=== PATIENT | female | born 1960 | race Caucasian/White ===

== ENCOUNTER 2018-09-19 11:40 | Day surgery (SDC) | payer BC, OTHER ==
--- NOTE | 2018-09-19 06:30 | HP ---
AMENDED REPORT NOW INCLUDES DESIGNATED COSIGNER PREOPERATIVE HISTORY AND PHYSICAL: DATE OF SURGERY/ADMISSION: 09/19/18 ATTENDING SURGEON: Tomeka Jerez MD * (DICTATED BY TONY MCCARTHY) PROCEDURE: Right wrist open reduction internal fixation. DATE OF OFFICE VISIT/ENCOUNTER: 09/18/18. CHIEF COMPLAINT: Right wrist pain after a fall. HISTORY OF PRESENT ILLNESS: This is a 58-year-old female who sustained injury to her right wrist on 09/16/18 while running a trail race. She reports she was about 32 miles into a 50 mile race when she tripped and fell on her outstretched right hand. This was in [place], [place]. She was seen at a hospital there and had an x-ray, which showed a markedly displaced fracture of the distal radius and also a displaced ulnar styloid fracture. She had this reduced by an orthopedist who is able to achieve a fairly good position and placed her in a sugar tong splint. She denies any associated numbness or tingling. She has been using over- the-counter naproxen and Tylenol for pain control, but does have some oxycodone 5 mg that was prescribed. This is her dominant hand. After review of x-rays by Dr. Jerez and clinical exam, she had consented to proceed with surgical intervention at this time in the form of an right wrist open reduction internal fixation. PAST MEDICAL HISTORY: 1. Hypothyroidism. 2. Libertad's thyroiditis. 3. Migraine headaches. 4. Raynaud's disease. 5. History of anemia. PAST SURGICAL HISTORY: A LEEP procedure in 2000. CURRENT MEDICATIONS: 1. Calcium 600 plus vitamin D 1 tab daily. 2. Excedrin Migraine p.r.n. 3. Fish oil 1000 mg 2 tabs daily. 4. Iron complex 27 mg daily. 5. Levoxyl 137 mcg 1 tab 2 days, 125 mcg every third day. 6. Multivitamins 1 daily. 7. Vitamin D3 1000 units daily. ALLERGIES: NOVOCAINE causes nausea. Sulfa antibiotics causes hives. FAMILY MEDICAL HISTORY: Noncontributory. SOCIAL HISTORY: The patient works from home in [employer]. She denies tobacco use and recreational drug use. She drinks alcohol on a very rare occasion. REVIEW OF SYSTEMS: Negative for general, cephalic, cardiovascular, respiratory , GI, , other musculoskeletal, integumentary, endocrine, neurologic, and hematologic symptoms. Infectious Disease is negative for MRSA, hepatitis C or HIV. PHYSICAL EXAMINATION GENERAL: Well-developed, well-nourished 58-year-old female, in no acute distress. VITAL SIGNS: Height 5 feet tall, weight 102 pounds, pulse rate 58, blood pressure 128/80. HEENT: Normocephalic, atraumatic. Pupils are equal, round, and reactive to light and accommodation. Extraocular movements are intact. Throat is clear. NECK: Supple. No palpable lymph nodes. CARDIOVASCULAR: Regular rate and rhythm. S1, S2. No murmurs, rubs or gallops. No edema. PULMONARY: Lungs are clear to auscultation bilaterally. No wheezes, rales or rhonchi. ABDOMEN: Positive bowel sounds. Soft, nontender. NEUROLOGICAL: Alert and oriented x3. Cranial nerves II through XII are intact. Sensation is intact to light touch. MUSCULOSKELETAL: On exam of her right upper extremity, she is maintained in a sugar tong splint. Her fingers have mild swelling but she has movement in them in both flexion and extension and neurovascular function is intact. IMAGING STUDIES: Pre and post reduction x-rays of the right wrist show a markedly displaced fracture of the distal radius and ulnar styloid. Post reduction shows a markedly improved alignment, but still a little bit of apex volar angulation. The ulnar styloid fracture is well reduced. IMPRESSION: Right distal radius and ulnar styloid fractures. PLAN: The patient is scheduled to undergo a right wrist open reduction and internal fixation with Dr. Jerez on 09/19/18. She will return to the office 10 days postop for followup and suture removal. She will continue with over-the- counter medications, naproxen and Tylenol for postoperative pain management, and she has some oxycodone 5 mg at home which we will refill if needed. TONY MCCARTHY [id number] #: [id number] MTDD
[2018-09-19] MEDS ORDERED: Dexamethasone IV* 4 MG/ML 1 ML (4 MG) ONE (12:17)
[2018-09-19] MEDS ORDERED: Famotidine IV* 10 MG/ML 2 ML (20 mg) ONE (12:17)
[2018-09-19] MEDS ORDERED: ceFAZolin 2 GM PREMIX in ORs 2 GM/50 ML BAG IVPB ONE (12:17)
[2018-09-19] MEDS ORDERED: Midazolam* 1 MG/ML 2 ML VIAL (2 MG) ONE (15:03)
[2018-09-19] MEDS ORDERED: fentaNYL* 50 MCG/ML 2 ML VIAL (100 MCG VIAL) ONE (15:03)
[2018-09-19] MEDS ORDERED: Mepivacaine 2% MPF (20 MG/ML)* 20 ML MPF ONE (15:05)
[2018-09-19] MEDS ORDERED: Mepivacaine 1% (10 MG/ML)* 30 ML SDV ONE (15:05)
[2018-09-19] MEDS ORDERED: ROPIVACAINE 5 MG/ML 30 ML BTL (0.5%) ONE (15:25)
[2018-09-19 17:37] VITALS: BP 168/68
--- NOTE | 2018-09-20 09:57 | OP ---
DATE OF OPERATION: 09/19/18 - [facility] DATE OF : 60 SURGEON: Tomeka Jerez MD LICENSING ENGINEER: TONY Ely ANESTHESIA: Block. PRE-OP DIAGNOSES: Distal radius fracture on the right, which is comminuted intraarticular and displaced and right ulnar styloid fracture. POST-OP DIAGNOSES: Distal radius fracture on the right, which is comminuted intraarticular and displaced and right ulnar styloid fracture. OPERATIVE PROCEDURE: Open reduction internal fixation of the right distal radius and percutaneous pinning of the right ulnar styloid. ESTIMATED BLOOD LOSS: Zero. TOURNIQUET TIME: About 45 minutes. INDICATION FOR PROCEDURE: Miri is a 58-year-old woman who was trail running and she fell on to her out-stretched right hand. She suffered a distal radius fracture, which was reduced, but shows some residual displacement. Also, there was a displaced ulnar styloid fracture, which has been reduced. She presents for ORIF of the right wrist. DESCRIPTION OF PROCEDURE: The patient was brought to the operating room and was given a block anesthetic and then placed in the supine position on the operating table with a tourniquet around her right upper arm. Skin of her right upper extremity was prepped and draped in the usual sterile fashion. The hand and forearm were exsanguinated and the tourniquet elevated to 250 mmHg. A longitudinal incision was made overlying the FCR tendon and dissected sharply through the superficial and deep portion of the FCR tendon sheath. The FPL muscle and tendon were retracted and then the pronator quadratus was subperiosteally dissected off the distal radius. The fracture fragments were reduced and then secured with a 3- hole distal radius plate from the [employer] variable angle set, there were 4 distal screws and 3 proximal screws. The position of the hardware and fracture fragments were checked on the C-arm in the AP and lateral views and found to be satisfactory. I decided to fix the ulnar styloid, which was well reduced with two 1.25-mm K- wires. The position of the K-wires was checked on the C-arm in the AP and lateral views and found to be satisfactory. The pins were bent and cut. The wound was irrigated and the skin edges were reapproximated with 4-0 nylon suture after repairing the pronator quadratus over the plate and the FCR tendon sheath both with 2-0 Vicryl suture. The wound was dressed with Xeroform, 4x4, Webril, and a volar splint. The patient tolerated the procedure well and was brought to the recovery room in good condition. [id number] #: [id number] MTDD
== END 2018-09-19 17:36 | disposition home or self-care (01) ==
LOC: OREAST 11:40
PROVIDERS: ATTEND Orthopaedic Surgery
DX: S52.571A Other intraarticular fracture of lower end of right radius, initial encounter for closed fracture (principal); S52.611A Displaced fracture of right ulna styloid process, initial encounter for closed fracture; W18.39XA Other fall on same level, initial encounter; Y93.89 Activity, other specified; Y92.89 Other specified places as the place of occurrence of the external cause; E03.9 Hypothyroidism, unspecified; I73.00 Raynaud's syndrome without gangrene
CPT/HCPCS: 76000; C1713; C1776; J0670; J0690; J1100; J2250; J2795; J3010